=== PATIENT | male | born 1975 | race Caucasian/White ===

== ENCOUNTER 2018-04-01 11:29 | Outpatient (CLI) | payer BC ==
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
== END 2018-04-01 11:30 | disposition home or self-care (01) ==
LOC: RAD 11:29
PROVIDERS: ATTEND Physician Assistant Surgical
DX: M25.572 Pain in left ankle and joints of left foot (principal)